=== PATIENT | male | born 1975 | race Caucasian/White ===

== ENCOUNTER 2017-12-24 17:56 | Emergency (ER) | payer SELFPAY ==
[2017-12-24 19:42] LABS: Hematocrit 39.1 % (35.5-45.6); Hemoglobin 13.3 gm/dl (11.8-15.2); Mean Corpuscular HGB Conc 34 % (32-34); Mean Corpuscular Hemoglobin 30 pg (28-32); Mean Corpuscular Volume 87 fl (84-94); Platelet Count 254 K/mm3 (140-440); Red Blood Count 4.49 M/mm3 (3.65-5.03); Red Cell Distribution Width 13.7 % (13.2-15.2)
[2017-12-24] MEDS ORDERED: NORCO 5/325 PO ONE ×2 (20:01→22:15)
[2017-12-24 20:02] LABS: Alanine Aminotransferase 18 units/L (7-56); Albumin 3.2 g/dL (3.9-5); BUN/Creatinine Ratio 11; Blood Urea Nitrogen 10 mg/dL (9-20); Calcium 8.6 mg/dL (8.4-10.2); Hemolysis Index 79
[2017-12-24 20:42] LABS: Basophils % (Manual) 0 % (0.0-1.8); Total Cells Counted 100
[2017-12-24 20:43] LABS: RBC Morphology Normal
--- NOTE | 2017-12-24 21:13 | Emergency Department Report ---
ED Abdominal Pain HPI - General Chief Complaint: Abdominal Pain Stated Complaint: 1014 Time Seen by Provider: 12/24/17 19:27 Source: patient, EMS Mode of arrival: Stretcher Limitations: No Limitations - History of Present Illness Initial Comments: [facility], which is at [facility] alcohol abuse and suicidal thoughts. He has been having right lower quadrant abdominal pain that has been worsening over the past month. Pain is constant. radiating to his testicles. Worse with urination. Sharp in nature. Patient says for the past 3 years he has been having intermittent hematuria. He reports going to [facility] a couple weeks ago and told that he has a mass in his abdomen that is likely malignant in needs to be worked up. He has not received his workup yet. Severity scale (0 -10): 0 - Related Data Previous Rx's Medication Instructions Recorded Last Taken Type Cephalexin [Keflex] 500 mg PO Q8HR #30 cap 12/24/17 Unknown Rx Phenazopyridine [Pyridium] 200 mg PO TID PRN #30 tab 12/24/17 Unknown Rx traMADol [Ultram] 50 mg PO Q6HR PRN #16 tablet 12/24/17 Unknown Rx Allergies Allergy/AdvReac Type Severity Reaction Status Date / Time Penicillins Allergy Unknown Verified 12/24/17 18:55 phenytoin [From Dilantin] Allergy Unknown Verified 12/24/17 18:55 ED Review of Systems ROS: Stated complaint: 1014 Other details as noted in HPI Comment: All other systems reviewed and negative Gastrointestinal: abdominal pain, nausea, vomiting Genitourinary: hematuria ED Past Medical Hx - Past Medical History Hx Kidney Stones: Yes Additional medical history: Blood clots in urine - Social History Smoking Status: Smoker, Current Status Unknown Substance Use Type: Alcohol - Medications Home Medications: Home Medications Medication Instructions Recorded Confirmed Last Taken Type Cephalexin [Keflex] 500 mg PO Q8HR #30 cap 12/24/17 Unknown Rx Phenazopyridine [Pyridium] 200 mg PO TID PRN #30 tab 12/24/17 Unknown Rx traMADol [Ultram] 50 mg PO Q6HR PRN #16 tablet 12/24/17 Unknown Rx ED Physical Exam - General Limitations: No Limitations General appearance: alert, in no apparent distress - Head Head exam: Present: atraumatic, normocephalic - Eye Eye exam: Present: normal appearance - ENT ENT exam: Present: mucous membranes moist - Neck Neck exam: Present: normal inspection - Respiratory Respiratory exam: Present: normal lung sounds bilaterally. Absent: respiratory distress - Cardiovascular Cardiovascular Exam: Present: regular rate, normal rhythm. Absent: systolic murmur, diastolic murmur, rubs, gallop - GI/Abdominal GI/Abdominal exam: Present: soft, tenderness (rlq), normal bowel sounds - Rectal Rectal exam: Present: deferred - exam: Present: normal inspection - Extremities Exam Extremities exam: Present: normal inspection - Back Exam Back exam: Present: normal inspection - Neurological Exam Neurological exam: Present: alert, oriented X3 - Psychiatric Psychiatric exam: Present: normal affect, normal mood - Skin Skin exam: Present: warm, dry, intact, normal color. Absent: rash ED Course Vital Signs 12/24/17 18:48 Temperature 98.6 F Pulse Rate 87 Respiratory 18 Rate Blood Pressure 138/77 O2 Sat by Pulse 98 Oximetry ED Medical Decision Making - Lab Data Result diagrams: 12/24/17 19:30 12/24/17 19:30 - Radiology Data Radiology results: report reviewed, image reviewed - Medical Decision Making 42-year-old male but does have a past medical history presents to the ER with lower abdominal pain. Vital signs stable. Patient is well-appearing. Lab work is unremarkable. CT shows concerns for bladder malignancy with evidence of moderate bilateral hydronephrosis. Creatinine is normal. Patient needs a urologist to work this up further. No obvious evidence of renal obstruction at this time. He will be started on Keflex to treat his urine and given Pyridium/ tramadol for pain relief. The patient will follow up with urologist for further management/evaluation of this issue. Pt has no evidence of torsion on clinical exam. - Differential Diagnosis uti, pyelo, malignancy, bladder obstruction, cystitis, torsion Critical care attestation.: If time is entered above; I have spent that time in minutes in the direct care of this critically ill patient, excluding procedure time. ED Disposition Clinical Impression: Bladder mass Disposition: [id number] TO HOME OR SELFCARE Is pt being admited?: No Condition: Stable Additional Instructions: Please follow up with urology for further management of your bladder mass. Call tomorrow to make an appointment. Take your prescriptions as ordered. Prescriptions: Cephalexin [Keflex] 500 mg PO Q8HR #30 cap Phenazopyridine [Pyridium] 200 mg PO TID PRN #30 tab PRN Reason: Pain , Severe (7-10) traMADol [Ultram] 50 mg PO Q6HR PRN #16 tablet PRN Reason: Pain Referrals: PRIMARY CARE, [Primary Care Provider] - 3-5 Days ARTEMIO PRETTY MD [Staff Physician] - 3-5 Days
[2017-12-24 21:17] LABS: Bacteria,Urine 1+ /HPF (Negative); Bilirubin,Urine NEG (Negative); Blood,Urine MOD (Negative); Color,Urine Yellow (Yellow); Mucus,Urine FEW /HPF; Urobilinogen,Urine < 2.0 mg/dL (<2.0)
--- NOTE | 2017-12-24 22:10 | Cat Scan Report ---
FINAL REPORT EXAM: CT ABDOMEN PELVIS W CON HISTORY: rlq pain TECHNIQUE: Helical CT scan through the abdomen and pelvis without contrast. Images are reconstructed in the sagittal and coronal planes. PRIORS: None. FINDINGS: Solid organ and bowel evaluation is limited without intravenous contrast. Bowel evaluation is limited without oral contrast. The bladder wall is markedly diffusely and irregularly thickened up to 3.9 cm with an 5.8 cm area of masslike thickening of the left bladder dome. There is moderate bilateral hydronephrosis an ureterectasis. There are 2 cysts in the right kidney measuring 2.1 and 1.3 cm respectively. There are no abnormally enlarged pelvic lymph nodes. Numerous nonenlarged bilateral inguinal and retroperitoneal lymph nodes. The lung bases are clear. The liver, gallbladder, pancreas, spleen and adrenal glands appear normal. The kidneys appear grossly normal. The stomach appears grossly within normal limits. There are no abnormally dilated loops of bowel or acute inflammatory changes. There is the relatively large amount of stool throughout the colon. The abdominal aorta has a normal diameter. There are bilateral pars defects at L5 without spondylolisthesis. There is degenerative disc disease at L5-S1 with loss of disc height, a broad-based posterior disc bulge and vacuum disc. IMPRESSION: 1. Marked thickening the bladder wall is suspicious for malignancy. Chronic cystitis is considered to be much less likely. There is resultant moderate bilateral hydronephrosis and ureterectasis. 2. Question constipation I gave a verbal report by phone to Dr. Woodson at 9:54 p.m. eastern daylight time.
[2017-12-24] MEDS ORDERED: KEFLEX PO ONE (22:29)
[2017-12-24] MEDS ORDERED: PYRIDIUM PO ONE (22:29)
[2017-12-24 22:55] VITALS: BP 130/78
== END 2017-12-24 22:56 | disposition home or self-care (01) ==
LOC: ED 17:56
DX: N32.9 Bladder disorder, unspecified (principal); Z88.0 Allergy status to penicillin; Z88.8 Allergy status to other drugs, medicaments and biological substances
CPT/HCPCS: 36415; 74177; 80053; 81001; 83880; 85007; 85025; 99284; Q9967